=== PATIENT | female | born 1990 | race Caucasian/White ===

== ENCOUNTER 2016-10-02 19:40 | Emergency (ER) | payer MEDICAID ==
[~2016-10-02 19:40] MED LIST: DOXY100T PO; METR-1 PO
--- NOTE | 2016-10-02 20:39 | PD ---
HPI Chief Complaint Presents with N/V and fevers. Date Seen: Oct 02, 2016 Travel History International Travel<30 Days: No Contact w/Intl Traveler<30Days: No Known Affected Area: No History of Present Illness HPI G1 at 18w 6d presents with c/o N/V and fevers at home-99.5. Reports taking Tamiflu currently prescribed by OB provider.Reports body aches since yesterday. Good FM. No other complaints. Para: 0 : 1 Last Menstrual Period: Oct 02, 2016 History Past Medical History Medical History: Denies Significant Hx Past Surgical History Surgical History: No Previous Surgery Family History Family History: Negative Social History Alcohol Use: No Tobacco Use: No Substance Abuse: No (History of use, last use 2011. None this .) Allergies-Medications (Allergen,Severity, Reaction): Uncoded Allergies: NO NARCOTICS (Adverse Reaction, Unknown, 07/19/13) STATES' RECOVERY" Home Meds Active Scripts Metronidazole (Flagyl)500 Mg [id number] Mg PO BID 14 Days Prov:Zaina Badillo MD 05/02/16 Doxycycline Hyclate 100 mg 100 Mg Cap1 Tab PO BID 14 Days Prov:Zaina Badillo MD 05/02/16 Review of Systems Gastrointestinal: Nausea, Vomiting (Episodes x 2 today) Physical Exam Narrative GENERAL: Well-nourished, well-developed patient. SKIN: Warm and dry. HEAD: Normocephalic and atraumatic. EYES: No scleral icterus. No injection or drainage. ENT: No nasal drainage noted. Mucous membranes pink. Airway patent. NECK: Supple, trachea midline. No JVD. CARDIOVASCULAR: Regular rate and rhythm without murmurs, gallops, or rubs. RESPIRATORY: Breath sounds equal bilaterally. No accessory muscle use. BREASTS: Bilateral exam showed no masses , no retractions, no nipple discharge. ABDOMEN/GI: Abdomen soft, non-tender, bowel sounds present, no rebound, no guarding Gravid to [-] weeks size Fundal Height: [-] GENITOURINARY: Deferred FHT's: 150s EXTREMITIES: No cyanosis or edema. BACK: Nontender without obvious deformity. No CVA tenderness. NEUROLOGICAL: Awake and alert. Motor and sensory grossly within normal limits. Five out of 5 muscle strength in all muscle groups. Normal speech. Data Data Vital Signs Reviewed: Yes MDM Interpretation(s) G1 at 18w 6d with flu like symptoms Plan Continue Tamiflu. Rx for Zofran prn. Hydration encouraged. Diagnosis Diagnosis: Primary Impression: 18 weeks gestation of Additional Impressions: Nausea and vomiting during prior to 22 weeks gestation Flu-like symptoms Disposition: 01 DISCHARGE HOME Condition: Stable Scripts Ondansetron Odt (Zofran Odt)4 Mg Tab4 Mg SL Q6HR PRN (Nausea/Vomiting) #20 TAB Ref 0 Prov:Blanca Sheehan MD 10/02/16 Patient Instructions: General Instructions, Nausea and Vomiting in ( ED), Labor (ED) Additional Instructions: RETURN FOR CONTRACTIONS, LOSS OF FLUID (WATER BREAKING), VAGINAL BLEEDING, OR DECREASED MOVEMENT. DRINK 8-10 LARGE GLASSES OF WATER EVERY DAY. BLAND FOOD FOR THE NEXT FEW DAYS. BRAT DIET (BANANAS, RICE, APPLESAUCE, AND TOAST). KEEP SCHEDULED APPOINTMENT WITH YOUR PROVIDER. Departure Forms: Tests/Procedures Blanca Sheehan MD Oct 02, 2016 20:39 BLAND FOOD FOR THE NEXT FEW DAYS. BRAT DIET (BANANAS, RICE, APPLESAUCE, AND TOAST). KEEP SCHEDULED APPOINTMENT WITH YOUR PROVIDER. Departure Forms: Tests/Procedures Blanca Sheehan MD Oct 02, 2016 20:39
[2016-10-02] MEDS ORDERED: ZOFR4TAB3 SL (20:43)
== END 2016-10-02 20:52 | disposition home or self-care (01) ==
LOC: HOBED 19:40
DX: O21.0 Mild hyperemesis gravidarum (principal); Z3A.18 18 weeks gestation of pregnancy
CPT/HCPCS: 99283

== ENCOUNTER 2016-12-27 17:14 | Inpatient (IN) | payer MEDICAID ==
[2016-12-27] VITALS (18 sets, daily range): BP systolic 116–135; BP diastolic 67–84; PULSE 104–118; RESP 18; TEMP 99.2
[~2016-12-27] VITALS: Ht 165.1 cm; Wt 68.0 kg
[~2016-12-27 17:14] MED LIST changes: +ZOFR4TAB3 SL
[2016-12-27] MEDS: LACTATED RINGER'S 1000 ML INJ 1,000 ML IV SCH ×2 (17:54→20:00)
[2016-12-27] MEDS ORDERED: LACTATED RINGER'S 1000 ML INJ 500 ML IV ONE ×2 (17:54→19:25)
--- NOTE | 2016-12-27 17:54 | PD ---
HPI Chief Complaint lower back/abdominal pain Date Seen: December 27, 2016 (Rodney Mckoy MD R2) Travel History International Travel<30 Days: No Contact w/Intl Traveler<30Days: No (Rodney Mckoy MD R2) History of Present Illness HPI Ms. Bermudez is a 26 yo G[address] Vides at 31 1/7 weeks (SAIDA 2016) who presents with lower back pain radiating to her abdomen and concern of rupture of membranes. Patient reports chronic lower back pain, but states that her current pain is worse and different than her usual pain. Patient states that since yesterday, it is been more painful and is radiating to her stomach. Patient describes pain as crampy in nature. Patient reports nausea as well. Patient also reports increased vaginal discharge which is thick in nature and also reports "drip"ping of clear vaginal fluid; patient is not sure whether her membranes ruptured. Patient denies vaginal bleeding, however states that she is recently had pink staining after sexual intercourse approximately 2 nights ago. Patient reports normal movement. Patient does not report fever/ chills, dysuria, or abnormal bowel movements. Report chest pain, shortness of breath, headaches, or leg swelling. Patient states that she has had a benign course with reassuring ultrasound. Patient reports normal labs with exception of elevated one -hour glucose testing; she states that 3 hour testing was normal. Patient reports history of hepatitis C but that it is suppressed at this time. Patient denies any medications or drug use during ; her last IVDU was 2 years prior. : 1 (Rodney Mckoy MD R2) History Past Medical History Narrative Medical Hepatitis C Prior IV DU (Rodney Mckoy MD R2) Obstetric History Obstetric History G1 (Rodney Mckoy MD R2) Past Surgical History Surgical History: No Previous Surgery (Rodney Mckoy MD R2) Family History Narrative Family History Family history of drug abuse per patient (Rodney Mckoy MD R2) Social History Narrative Social History Prior IV drug use including heroin, meth 2 years ago Patient stopped smoking when she knew she was Alcohol Use: No Tobacco Use: No Substance Abuse: No (Rodney Mckoy MD R2) Allergies-Medications (Allergen,Severity, Reaction): Uncoded Allergies: NO KNOWN ALLERGIES (Allergy, Unknown, 12/27/16) Home Meds Active Scripts Ondansetron Odt (Zofran Odt)4 Mg Tab4 Mg SL Q6HR PRN (Nausea/Vomiting) #20 TAB Ref 0 Prov:Blanca Sheehan MD 10/02/16 Metronidazole (Flagyl)500 Mg [id number] Mg PO BID 14 Days Prov:Zaina Badillo MD 05/02/16 Doxycycline Hyclate 100 mg 100 Mg Cap1 Tab PO BID 14 Days Prov:Zaina Badillo MD 05/02/16 Review of Systems General / Constitutional: No: Fever, Chills Eyes: No: Diploplia, Visual changes Cardiovascular: No: Chest Pain or Discomfort Respiratory: No: Short of Breath Gastrointestinal: Nausea, No: Vomiting Genitourinary: No: Urgency, Dysuria (Rodney Mckoy MD R2) Physical Exam T 99 RR 16 HR 100 BP 123/82 Narrative GENERAL: Well-nourished, well-developed patient. SKIN: Warm and dry. HEAD: Normocephalic and atraumatic. EYES: No scleral icterus. No injection or drainage. ENT: No nasal drainage noted. Mucous membranes pink. Airway patent. NECK: Supple, trachea midline. No JVD. CARDIOVASCULAR: Regular rate and rhythm without murmurs RESPIRATORY: CTAB, normal rate ABDOMEN/GI: Abdomen soft, non-tender, bowel sounds present, no rebound, no guarding Gravid EXTREMITIES: No cyanosis or edema. BACK: No CVA tenderness. NEUROLOGICAL: Awake and alert. Motor and sensory function grossly within normal limits. GENITOURINARY: External Genitalia: intact and normal in appearance Cervix: [-] Dilatation: [-] Effacement: [-] Station: [-] Presentation: [-] Membranes: [intact or ruptured] Uterine Contractions: [-] FHT's: Category: 1 Baseline: 130 Reactive: Y Variability: Mod Decels: None (Rodney Mckoy MD R2) Data Data Vital Signs Reviewed: Yes (Rodney Mckoy MD R2) MDM Medical Record Reviewed: Yes Narrative Course / MDM 26 yo G1 patient of [address]. Vides at 31 1/7 weeks (SAIDA 02/27/2017) -Symptoms of lower back pain radiating to her abdomen and concern for rupture of membranes -Cat 1 rhythm -Irregular contractions/irritability on CTG Plan: -Continue EFM -Will check Amnisure for concern for ROM -Will check FFN for contractions/pain -Will check UA for abdominal/back pain (suspicion low since no f/c or dysuria) Interval: Amnisure negative Cervix- 2 cm, effaced, bulging bag CTG- continued irritability Updated Plan: We'll admit patient for observation for labor We'll obtain GBS culture We'll check CBC, BMP We'll start IVF -We'll start MgSO4 (4gmg->2mg) We'll give betamethasone 12 mg 2 doses We'll start GBS prophylaxis with PCN We will obtain ultrasound to confirm lie and weight We'll consult well point pumping supervisor We'll check UDS due to patient's remote history of substance abuse Case discussed between Dr. Francois and Dr. Dr. Vides (Rodney Mckoy MD R2) Collaborating MD Comments Patient with labor. Agree with management plan which has been explained to patient and her family. Chad consult placed, sonogram noted 1770gm, 3#14oz, cephalic. Magnesium sulfate for tocolysis and neuroprotection started, betamethsone given, and PCN prophylaxis. Patient will be admitted. (Karen Francois MD) Rodney Mckoy MD R2 December 27, 2016 17:54 Karen Francois MD December 27, 2016 23:06
[2016-12-27] MEDS ORDERED: SODIUM CHLORIDE 0.9% FLUSH 10 ML FLUSH IV FLUSH PRN ×2 (18:00→19:30)
[2016-12-27 18:58] LABS: BACTERIA, URINE RARE /hpf; BLOOD, URINE NEG (NEG); COMMENT (UR) CULT NOT INDICATED; CULTURE IF INDICATED CULT NOT INDICATED; GLUCOSE,URINE NEG (NEG); KETONE, URINE TRACE mg/dL (NEG); NITRITE,URINE NEG (NEG); SQUAMOUS EPITHELIAL CELL URINE 6 /hpf (0-5); URINE COLOR YELLOW (YELLW/STRAW)
[2016-12-27] MEDS ORDERED: CALCIUM GLUCONATE 10% 1 GM/10 ML VIAL IV PRN (19:30)
[2016-12-27] MEDS ORDERED: MAGNESIUM SULFATE 4 GM PREMIX 100 ML IV ONE (19:30)
[2016-12-27] MEDS ORDERED: ONDANSETRON HCL 4 MG/2 ML VIAL IV PRN (19:30)
[2016-12-27] MEDS ORDERED: ACETAMINOPHEN 325 MG TAB PO PRN (19:30)
--- NOTE | 2016-12-27 19:37 | HHI.HP ---
History & Physical H&P OB ED Note (Detail) Patient Name: Cr Bermudez Unit Number: [id number] Date of : 1990 Patient Status: Registered Emergency Room Attending Doctor: Karen Francois MD HPI HPI Chief Complaint lower back/abdominal pain Date Seen: December 27, 2016 Travel History International Travel<30 Days: No Contact w/Intl Traveler<30Days: No History of Present Illness HPI Ms. Bermudez is a 26 yo G[address] Vides at 31 1/7 weeks (SAIDA 2016) who presents with lower back pain radiating to her abdomen and concern of rupture of membranes. Patient reports chronic lower back pain, but states that her current pain is worse and different than her usual pain. Patient states that since yesterday, it is been more painful and is radiating to her stomach. Patient describes pain as crampy in nature. Patient reports nausea as well. Patient also reports increased vaginal discharge which is thick in nature and also reports "drip"ping of clear vaginal fluid; patient is not sure whether her membranes ruptured. Patient denies vaginal bleeding, however states that she is recently had pink staining after sexual intercourse approximately 2 nights ago. Patient reports normal movement. Patient does not report fever/ chills, dysuria, or abnormal bowel movements. Report chest pain, shortness of breath, headaches, or leg swelling. Patient states that she has had a benign course with reassuring ultrasound. Patient reports normal labs with exception of elevated one -hour glucose testing; she states that 3 hour testing was normal. Patient reports history of hepatitis C but that it is suppressed at this time. Patient denies any medications or drug use during ; her last IVDU was 2 years prior. : 1 History (Limited) History Past Medical History Narrative Medical Hepatitis C Prior IV DU Obstetric History Obstetric History G1 Past Surgical History Surgical History: No Previous Surgery Family History Narrative Family History Family history of drug abuse per patient Social History Narrative Social History Prior IV drug use including heroin, meth 2 years ago Patient stopped smoking when she knew she was Alcohol Use: No Tobacco Use: No Substance Abuse: No Allergies-Medications Allergies-Medications (Allergen,Severity, Reaction): Uncoded Allergies: NO NARCOTICS (Adverse Reaction, Unknown, 07/19/13) STATES' RECOVERY" Home Meds Active Scripts Ondansetron Odt (Zofran Odt)4 Mg Tab4 Mg SL Q6HR PRN (Nausea/Vomiting) #20 TAB Ref 0 Prov:Blanca Sheehan MD 10/02/16 Metronidazole (Flagyl)500 Mg [id number] Mg PO BID 14 Days Prov:Zaina Badillo MD 05/02/16 Doxycycline Hyclate 100 mg 100 Mg Cap1 Tab PO BID 14 Days Prov:Zaina Badillo MD 05/02/16 ROS Review of Systems General / Constitutional: No: Fever, Chills Eyes: No: Diploplia, Visual changes Cardiovascular: No: Chest Pain or Discomfort Respiratory: No: Short of Breath Gastrointestinal: Nausea, No: Vomiting Genitourinary: No: Urgency, Dysuria Physical Exam Physical Exam T 99 RR 16 HR 100 BP 123/82 Narrative GENERAL: Well-nourished, well-developed patient. SKIN: Warm and dry. HEAD: Normocephalic and atraumatic. EYES: No scleral icterus. No injection or drainage. ENT: No nasal drainage noted. Mucous membranes pink. Airway patent. NECK: Supple, trachea midline. No JVD. CARDIOVASCULAR: Regular rate and rhythm without murmurs RESPIRATORY: CTAB, normal rate ABDOMEN/GI: Abdomen soft, non-tender, bowel sounds present, no rebound, no guarding Gravid EXTREMITIES: No cyanosis or edema. BACK: No CVA tenderness. NEUROLOGICAL: Awake and alert. Motor and sensory function grossly within normal limits. GENITOURINARY: External Genitalia: intact and normal in appearance Cervix: [-] Dilatation: [-] Effacement: [-] Station: [-] Presentation: [-] Membranes: [intact or ruptured] Uterine Contractions: [-] FHT's: Category: 1 Baseline: 130 Reactive: Y Variability: Mod Decels: None Data Data Data Vital Signs Reviewed: Yes MDM MDM Medical Record Reviewed: Yes Narrative Course / MDM 26 yo G1 patient of [address]. Vides at 31 1/7 weeks (SAIDA 02/27/2017) -Symptoms of lower back pain radiating to her abdomen and concern for rupture of membranes -Cat 1 rhythm -Irregular contractions/irritability on CTG Plan: -Continue EFM -Will check Amnisure for concern for ROM -Will check FFN for contractions/pain -Will check UA for abdominal/back pain (suspicion low since no f/c or dysuria) Interval: Amnisure negative Cervix- 2 cm, effaced, bulging bag CTG- continued irritability Updated Plan: We'll admit patient for observation for labor We'll obtain GBS culture We'll check CBC, BMP We'll start IVF -We'll start MgSO4 (4gmg->2mg) We'll give betamethasone 12 mg 2 doses We'll start GBS prophylaxis with PCN We will obtain ultrasound to confirm lie and weight We'll consult mapping specialist We'll check UDS due to patient's remote history of substance abuse Case discussed between Dr. Francois and Dr. Dr. Peewee Mckoy,Rodney Grimm MD R2 December 27, 2016 19:37
[2016-12-27] MEDS ORDERED: PENICILLIN G POTASSIUM INJ 5,000,000 UNITS in SODIUM CHLORIDE 0.9% INJ 100 ML IV SCH (20:00)
[2016-12-27] MEDS: BETAMETHASONE SOD PHOS/ACETATE SUSP 30 MG/5 ML VIAL IM SCH (20:00)
[2016-12-27] MEDS ORDERED: LIDOCAINE 2% JELLY 30 ML TUBE ONE (20:42)
[2016-12-27 20:50] LABS: AUTOMATED NEUTROPHIL # 15.2 TH/MM3 (1.8-7.7); BASOPHIL # 0.1 TH/MM3 (0-0.2); BASOPHIL % 0.3 % (0.0-2.0); EOSINOPHIL % 0.2 % (0.0-4.0); HEMATOCRIT 33.7 % (35.0-46.0); HEMO FLAGS DIFF FINAL; LYMPHOCYTE # 1.6 TH/MM3 (1.0-4.8); MEAN CELL VOLUME 88.9 FL (80.0-100.0); MEAN CORPUSCULAR HEMOGLOBIN 30.8 PG (27.0-34.0); MEAN CORPUSCULAR HGB CONC 34.7 % (32.0-36.0); NEUT % 83.5 % (16.0-70.0); PLATELET COUNT 116 TH/MM3 (150-450); RED BLOOD COUNT 3.79 MIL/MM3 (4.00-5.30); RED CELL DISTRIBUTION WIDTH 12.8 % (11.6-17.2); WHITE BLOOD COUNT 18.1 TH/MM3 (4.0-11.0)
[2016-12-27] MEDS: SODIUM CHLORIDE 0.9% FLUSH 10 ML FLUSH IV FLUSH SCH (21:00)
[2016-12-27] MEDS ORDERED: SODIUM CHLORIDE 0.9% FLUSH 10 ML FLUSH IV FLUSH SCH (21:00)
[2016-12-27 21:05] LABS: BICARBONATE 25.2 MEQ/L (21.0-32.0); POTASSIUM 3.6 MEQ/L (3.5-5.1)
[2016-12-27] MEDS: MAGNESIUM SULFATE 40 GM PREMIX 1,000 ML IV SCH (21:20)
[2016-12-27 21:22] LABS: AMPHETAMINE, URINE NEG (NEG); BARBITURATES, URINE NEG (NEG); COCAINE, URINE NEG (NEG)
[2016-12-27] MEDS ORDERED: LACTATED RINGER'S 1000 ML INJ 1,000 ML IV ONE (23:15)
--- NOTE | 2016-12-27 23:26 | PD.CONS ---
Consult Maternal Hx: 26y/o female at 31 1/7weeks gestation with diagnosis of Premature Onset of Labor Mother admitted to [facility] & D on 12/27/16 secondary to contractions EDC of 02/27/17 Maternal risk factors/complications: History of IV drug use 2 years ago. Tobacco use prior to Maternal Labs: Pending. Mother relates history of Hepatitis C Maternal Medications: PNV, Iron, Antibiotics, Magnesium Sulfate Betamethasone first dose 12/27/16 Social: Supportive family Resides locally Family Hx: Mother reports no genetic or inherited conditions. Substance Abuse: IV drug use including Heroin last used 2 years ago. Discussion: Nurse Practitioner met with mother regarding threatened delivery at 31 1 /7 weeks gestation secondary to Premature Onset of Labor This consultation included generalized care of the baby in the NICU, common problems, complications and survival and/or disability potential if delivered at this time. The Nurse Practitioner provided information regarding the [employer] [facility] [employer] national statistics on overall survival at 31weeks at 99% and intact survival without significant neurodevelopmental disability or visual disability at 98%. There was a discussion of the disease processes that may affect an of this gestation, including but not limited to respiratory distress, infection and nutritional concerns. Discussion detailed various forms of respiratory support for immature lungs including use of surfactant and placement of umbilical catheters and/or PICC lines. Discussion focused on CPAP and/or ventilator support as needed for an infant of this gestation. There was a review of nutritional support challenges including IV and gavage feeding. There was discussion regarding of possible feeding intolerances and intestinal complications, including necrotizing enterocolitis a potential cause of serious illness and . Breast feeding and early breast milk pumping was strongly encouraged. Explained that infant is at risk for hyperbilirubinemia and may require treatment with phototherapy. There is a possibility that that baby could need a blood transfusion, which would be addressed in greater detail should the need arise. As the baby matures , it was explained that eye exams would be obtained to evaluate the immature eye for retinopathy of prematurity (ROP). There was a review of the potential for intraventricular hemorrhage (IVH), sonogram testing and subsequent risk of neurodevelopmental delay. It was explained that there is an increased potential for neurodevelopmental delay secondary to prematurity itself, even if the does not have IVH or ROP. Support systems in place at [facility] were reviewed and included , Case Management and Ministry which the family may utilize. Expected discharge would likely occur closer to the due date if the infant has an uncomplicated hospitalization. Greater than 50% of the consultation time was spent with the patient. KALA DUQUE December 27, 2016 23:26 KALA DUQUE December 27, 2016 23:26
[2016-12-27] MEDS: PENICILLIN G POTASSIUM INJ 2,500,000 UNITS in SODIUM CHLORIDE 0.9% INJ 100 ML IV SCH (23:49)
[2016-12-28] VITALS (117 sets, daily range): BP systolic 88–129; BP diastolic 37–83; PULSE 93–136; RESP 16–20; TEMP 97.8–98.6; O2SAT 96–100
[2016-12-28] MEDS: PENICILLIN G POTASSIUM INJ 2,500,000 UNITS in SODIUM CHLORIDE 0.9% INJ 100 ML IV SCH ×4 (03:43→16:36)
--- NOTE | 2016-12-28 08:41 | PD.LABORPN ---
Subjective Subjective 26 yo wf G1 at 30 1/2 weeks came to [facility] with back pain that was constant. No obvious risk factors for PTL In recovery almost two years. Compliant with care. Had quit job 3 weeks ago. No smoking, drinking, excessive caffein. Did move residence a few weeks ago. On initial evaluation was 2 cm and now 4-5/100/-2 Objective Vital Signs Vital Signs Date Time Temp Pulse Resp B/P Pulse Ox O2 Delivery O2 Flow Rate FiO2 12/28/16 08:15 98.3 12/28/16 08:00 16 12/28/16 08:00 104 114/73 12/28/16 07:00 110 115/81 12/28/16 06:00 101 110/75 12/28/16 05:00 96 102/62 12/28/16 04:00 98 111/61 12/28/16 03:00 102 105/58 12/28/16 02:00 100 116/80 Objective strip category 1 4-5/100/-2 On mag and steroids efw 3 pounds Assessment/Plan Problem List: (1) Flu-like symptoms (2) 18 weeks gestation of (3) Nausea and vomiting during prior to 22 weeks gestation Assessment and Plan move to labor side epidural prn anticipate delivery in next 24 hours EFW 3 14 notify NICU Kati Vides MD December 28, 2016 08:41
[2016-12-28] MEDS: LACTATED RINGER'S 1000 ML INJ 1,000 ML IV SCH ×2 (08:43→10:13)
[2016-12-28 11:11] LABS: AMPHETAMINE, URINE NEG (NEG)
[2016-12-28 11:17] LABS: BARBITURATES, URINE NEG (NEG); COCAINE, URINE NEG (NEG)
--- NOTE | 2016-12-28 12:29 | PD.LABORPN ---
Subjective Subjective having mild UCs despite magnesium tolerable Objective Vital Signs Vital Signs Date Time Temp Pulse Resp B/P Pulse Ox O2 Delivery O2 Flow Rate FiO2 12/28/16 12:12 112 129/83 12/28/16 12:00 16 12/28/16 11:30 97.8 12/28/16 11:00 99 117/74 12/28/16 10:00 107 106/61 12/28/16 09:00 109 109/67 12/28/16 08:15 98.3 12/28/16 08:00 16 12/28/16 08:00 104 114/73 12/28/16 07:00 110 115/81 12/28/16 06:00 101 110/75 12/28/16 05:00 96 102/62 Objective -/100%/-1 bag seems intact strip category 1 ewf 3 pounds 14 ounces anticipate delivery today Assessment/Plan Problem List: (1) Flu-like symptoms (2) 18 weeks gestation of (3) Nausea and vomiting during prior to 22 weeks gestation Kati Vides MD December 28, 2016 12:29
[2016-12-28] MEDS: MAGNESIUM SULFATE 40 GM PREMIX 1,000 ML IV SCH (16:04)
[2016-12-28] MEDS ORDERED: fentaNYL 2MCG-BUPIV 0.125% INJ 100 ML ONE (16:29)
[2016-12-28] MEDS ORDERED: ePHEDrine/NS 25 MG/5 ML SYR ONE (16:30)
--- NOTE | 2016-12-28 16:32 | PD.LABORPN ---
Subjective Subjective very emotional feeling like she has to poop Objective Vital Signs Vital Signs Date Time Temp Pulse Resp B/P Pulse Ox O2 Delivery O2 Flow Rate FiO2 12/28/16 16:01 18 12/28/16 16:00 103 110/75 12/28/16 16:00 98.6 12/28/16 14:59 102 115/73 12/28/16 14:03 18 12/28/16 14:00 103 105/59 12/28/16 13:14 20 12/28/16 13:00 104 114/72 12/28/16 12:45 18 12/28/16 12:12 112 129/83 12/28/16 12:00 16 12/28/16 11:30 97.8 12/28/16 11:00 99 117/74 12/28/16 10:00 107 106/61 12/28/16 09:00 109 109/67 Objective 100/8-9/0 strip category one' no longer feel membranes amnisure was negative on admission Assessment/Plan Problem List: (1) labor in third trimester Assessment and Plan anticipate delivery soon epidural now. Kati Vides MD December 28, 2016 16:32
[2016-12-28] MEDS ORDERED: ePHEDrine/NS 25 MG/5 ML SYR IV PRN (18:00)
[2016-12-28] MEDS ORDERED: DO NOT ADMINISTER ANTICOAGULANTS PRN (18:00)
[2016-12-28] MEDS ORDERED: NO SYSTEM NARCOTICS PRN (18:00)
[2016-12-28] MEDS: SODIUM CHLORIDE 0.9% FLUSH 10 ML FLUSH IV FLUSH SCH (19:36)
[2016-12-28] MEDS: fentaNYL 2MCG-BUPIV 0.125% 100 ML EPIDURAL SCH ×2 (19:37→23:30)
[2016-12-28] MEDS: ceFAZolin 1,000 MG/NS 100 ML IV SCH ×2 (20:07)
[2016-12-28] MEDS: BETAMETHASONE SOD PHOS/ACETATE SUSP 30 MG/5 ML VIAL IM SCH (20:07)
[2016-12-29] VITALS (81 sets, daily range): BP systolic 87–128; BP diastolic 44–80; PULSE 74–115; RESP 18–20; TEMP 97.9–98; O2SAT 94–100
[2016-12-29] MEDS: ceFAZolin 1,000 MG/NS 100 ML IV SCH ×4 (04:04→12:03)
[2016-12-29] MEDS: LACTATED RINGER'S 1000 ML INJ 1,000 ML IV SCH ×2 (04:38→12:04)
[2016-12-29] MEDS: fentaNYL 2MCG-BUPIV 0.125% 100 ML EPIDURAL SCH ×2 (06:07→12:04)
[2016-12-29] MEDS ORDERED: OXYTOCIN 30 UNITS-500ML PREMIX 500 ML IV SCH (13:00)
--- NOTE | 2016-12-29 13:23 | PD.OB.DELI ---
Anesthesia: Epidural Episiotomy: Midline Vaginal Delivery: Normal Presentation: Occiput anterior Nuchal Cord: None Delayed cord clamping (45 sec): Yes Infant: Female One Minute : 6 Five Minute : 7 Placenta: Spontaneous delivery Laceration: Episiotomy, 2 deg Repair: Chromic running (placenta cultured) Kati Vides MD December 29, 2016 13:22
[2016-12-29] MEDS ORDERED: ACETAMINOPHEN 325 MG TAB PO PRN (13:30)
[2016-12-29] MEDS ORDERED: DOCUSATE SODIUM 50 MG/SENNA 8.6 MG TAB PO PRN (13:30)
[2016-12-29] MEDS ORDERED: ZOLPIDEM TARTRATE 5 MG TAB PO PRN (13:30)
[2016-12-29] MEDS ORDERED: ALUMINUM/MAGNESIUM/SIMETH 30 ML CUP PO PRN (13:30)
[2016-12-29] MEDS ORDERED: SODIUM CHLORIDE 0.9% FLUSH 10 ML FLUSH IV FLUSH PRN (13:30)
[2016-12-29] MEDS ORDERED: ONDANSETRON ODT 4 MG TAB PO PRN (13:30)
[2016-12-29] MEDS ORDERED: MEASLES, MUMPS, RUBELLA VACCINE 0.5 ML VIAL SQ ONE (16:00)
[2016-12-29] MEDS ORDERED: DIPHTH/TETANUS/ACEL PERTUSSIS (BOOSTER) 0.5 ML VIAL/PFS IM ONE (16:00)
[2016-12-29] MEDS: BENZOCAINE 20% TOPICAL SPRAY 60 ML CAN TOPICAL PRN (21:00)
[2016-12-29] MEDS ORDERED: SODIUM CHLORIDE 0.9% FLUSH 10 ML FLUSH IV FLUSH SCH (21:00)
[2016-12-29] MEDS: WITCH HAZEL 50%/GLYCERIN 12.5% 40 PAD JAR TOPICAL PRN (21:00)
[2016-12-29] MEDS: IBUPROFEN 600 MG TAB PO PRN (21:01)
[2016-12-30] MEDS: LACTATED RINGER'S 1000 ML INJ 1,000 ML IV SCH ×2 (04:00→10:45)
[2016-12-30] MEDS: IBUPROFEN 600 MG TAB PO PRN ×3 (05:16→19:41)
[2016-12-30] MEDS: SODIUM CHLORIDE 0.9% FLUSH 10 ML FLUSH IV FLUSH SCH (08:04)
--- NOTE | 2016-12-30 08:39 | HHI.OB ---
Subjective Post Day: 1 Remarks PPD#1, del. at 31 weeks,stable, in NICU Objective Vitals/I&O Vital Signs Date Time Temp Pulse Resp B/P Pulse Ox O2 Delivery O2 Flow Rate FiO2 12/29/16 20:45 98.0 74 20 117/75 12/29/16 14:25 18 12/29/16 14:15 94 124/67 12/29/16 14:01 95 108/66 12/29/16 13:46 100 119/77 12/29/16 13:24 115 104/52 12/29/16 13:23 18 12/29/16 12:32 18 12/29/16 12:30 97 108/72 12/29/16 12:10 18 12/29/16 12:04 18 12/29/16 12:00 99 89/44 12/29/16 11:30 99 117/75 12/29/16 10:03 97.9 18 12/29/16 10:00 104 117/72 12/29/16 09:43 18 12/29/16 09:30 103 120/72 12/29/16 09:00 103 128/76 Objective Remarks GENERAL: Well-nourished, well-developed patient. CARDIOVASCULAR: Regular rate and rhythm without murmurs, gallops, or rubs. RESPIRATORY: Breath sounds equal bilaterally. No accessory muscle use. ABDOMEN/GI: Abdomen soft, non-tender. Fundus: Firm, non-tender at umbilicus. GENITOURINARY: Light to moderate bleeding. EXTREMITIES: No cyanosis or edema, non-tender, without signs of DVT. Medications and IVs Current Medications Medications (Trade) Dose Ordered Sig/Heri Route Start Time Stop Time Status Last Admin (Lr 1000 ml Inj) 1,000 ml @ 125 mls/hr Q8H IV 12/27/16 20:00 12/29/16 12:04 (NS Flush) 2 ml UNSCH PRN IV FLUSH 12/27/16 19:30 Sodium Chloride 2 ml 2 ml BID IV FLUSH 12/27/16 21:00 (Magnesium Sulfate 40 Gm Premix) 1,000 ml @ 25 mls/hr Q24H IV 12/27/16 20:00 12/28/16 16:04 (Tylenol) 650 mg Q4H PRN PO 12/27/16 19:30 Ondansetron HCl 4 mg 4 mg Q6H PRN IV 12/27/16 19:30 Fentanyl/ Bupivacaine HCl 100 ml @ 0 mls/hr TITRATE EPIDURAL 12/28/16 18:00 12/29/16 12:04 Cefazolin Sodium 1000 mg/Sodium Chloride 100 ml @ 200 mls/hr Q8H IV 12/28/16 20:00 12/29/16 12:03 (Pitocin 30 Units-NS 500 ml Premix) 500 ml @ 0 mls/hr TITRATE IV 12/29/16 13:00 (Tylenol) 650 mg Q4H PRN PO 12/29/16 13:30 (Motrin) 600 mg Q6H PRN PO 12/29/16 13:30 12/30/16 05:16 (Americaine 20% Top Spr) 1 spray Q4H PRN TOPICAL 12/29/16 13:30 12/29/16 21:00 (Tucks Pads) 1 applic QID PRN TOPICAL 12/29/16 13:30 12/29/16 21:00 (Lottie-Colace) 2 tab Q12H PRN PO 12/29/16 13:30 12/29/16 21:03 (Ambien) 5 mg HS PRN PO 12/29/16 13:30 (Mag-Al Plus Susp Liq) 15 ml Q8H PRN PO 12/29/16 13:30 (Zofran Odt) 4 mg Q6H PRN PO 12/29/16 13:30 Assessment/Plan Problem List: (1) labor in third trimester Assessment and Plan PPD#1, stable, plan discharge tomorrow Discharge Planning Routine Attending Attestation seen by Angel Hamilton MD December 30, 2016 08:39
[2016-12-30] MEDS: ceFAZolin 1,000 MG/NS 100 ML IV SCH ×2 (10:45)
[2016-12-30 11:58] VITALS: BP 122/73; PULSE 90; RESP 18; TEMP 98.5
[2016-12-30 19:35] VITALS: BP 136/90; PULSE 76; RESP 18; TEMP 98.1
[2016-12-31] VITALS: BP 118/79; PULSE 57; RESP 18; TEMP 98.2
[2016-12-31] MEDS: IBUPROFEN 600 MG TAB PO PRN ×2 (05:52→12:01)
[2016-12-31] MEDS ORDERED: IBUP-232 PO (07:26)
--- NOTE | 2016-12-31 07:28 | HHI.DCPOC ---
Discharge Care Plan Diagnosis: (1) labor in third trimester with delivery Your Health Problems Are: Vaginal delivery Report Symptoms to Your Doctor -Temperate above 100.5 degrees -Redness, of incision or excessive or foul smelling drainage -Unusual pain or calf pain -Increased vaginal bleeding -Painful or difficulty urinating -Feelings of extreme sadness or anxiety after 2 weeks Goals to Promote Your Health * To prevent worsening of your condition and complications * To maintain your health at the optimal level Directions to Meet Your Goals Take your medications as prescribed Follow your dietary instruction Follow activity as directed Ensure plenty of rest for recovery Drink fluids for hydration Keep your appointments as scheduled Take your immunizations and boosters as scheduled If your symptoms worsen call your PCP, if no PCP go to Urgent Care Center or Emergency Room Smoking is Dangerous to Your Health. Avoid second hand smoke Call the 24-hour crisis hotline for domestic abuse at Fifi Cunningham MD December 31, 2016 07:28
--- NOTE | 2016-12-31 07:46 | HHI.OB ---
Subjective Post Day: 2 Remarks s/p delivery with labor at 31w6d; female infant in NICU Objective Vitals/I&O Vital Signs Date Time Temp Pulse Resp B/P Pulse Ox O2 Delivery O2 Flow Rate FiO2 12/31/16 00:00 98.2 12/31/16 00:00 57 18 118/79 12/30/16 19:35 98.1 12/30/16 19:35 76 18 136/90 12/30/16 11:58 98.5 90 18 122/73 Objective Remarks GENERAL: Well-nourished, well-developed patient. CARDIOVASCULAR: Regular rate and rhythm without murmurs, gallops, or rubs. RESPIRATORY: Breath sounds equal bilaterally. No accessory muscle use. ABDOMEN/GI: Abdomen soft, non-tender. Fundus: Firm, non-tender at umbilicus. GENITOURINARY: Light bleeding. EXTREMITIES: No cyanosis or edema, non-tender, without signs of DVT. Medications and IVs Current Medications Medications (Trade) Dose Ordered Sig/Heri Route Start Time Stop Time Status Last Admin (Lr 1000 ml Inj) 1,000 ml @ 125 mls/hr Q8H IV 12/27/16 20:00 12/29/16 12:04 (NS Flush) 2 ml UNSCH PRN IV FLUSH 12/27/16 19:30 Sodium Chloride 2 ml 2 ml BID IV FLUSH 12/27/16 21:00 (Magnesium Sulfate 40 Gm Premix) 1,000 ml @ 25 mls/hr Q24H IV 12/27/16 20:00 12/28/16 16:04 (Tylenol) 650 mg Q4H PRN PO 12/27/16 19:30 Ondansetron HCl 4 mg 4 mg Q6H PRN IV 12/27/16 19:30 Fentanyl/ Bupivacaine HCl 100 ml @ 0 mls/hr TITRATE EPIDURAL 12/28/16 18:00 12/29/16 12:04 Cefazolin Sodium 1000 mg/Sodium Chloride 100 ml @ 200 mls/hr Q8H IV 12/28/16 20:00 12/29/16 12:03 (Pitocin 30 Units-NS 500 ml Premix) 500 ml @ 0 mls/hr TITRATE IV 12/29/16 13:00 (Tylenol) 650 mg Q4H PRN PO 12/29/16 13:30 (Motrin) 600 mg Q6H PRN PO 12/29/16 13:30 12/31/16 05:52 (Americaine 20% Top Spr) 1 spray Q4H PRN TOPICAL 12/29/16 13:30 12/29/16 21:00 (Tucks Pads) 1 applic QID PRN TOPICAL 12/29/16 13:30 12/29/16 21:00 (Lottie-Colace) 2 tab Q12H PRN PO 12/29/16 13:30 12/29/16 21:03 (Ambien) 5 mg HS PRN PO 12/29/16 13:30 (Mag-Al Plus Susp Liq) 15 ml Q8H PRN PO 12/29/16 13:30 (Zofran Odt) 4 mg Q6H PRN PO 12/29/16 13:30 Assessment/Plan Problem List: (1) labor in third trimester Assessment and Plan PPD#2 continue routine supportive care meeting all discharge criteria dc to home today Discharge Planning Routine Fifi Cunningham MD December 31, 2016 07:46
[2016-12-31 08:07] VITALS: BP 108/71; PULSE 53; RESP 18; TEMP 98.2
[2016-12-31] MEDS: WITCH HAZEL 50%/GLYCERIN 12.5% 40 PAD JAR TOPICAL PRN (12:14)
[2016-12-31] MEDS: BENZOCAINE 20% TOPICAL SPRAY 60 ML CAN TOPICAL PRN (12:15)
[2017-01-01 14:30] LABS: BATH SALTS (MDPV) UR NEG (NEG); ECSTASY (MDMA) UR NEG (NEG); HEROIN (6-ACETYLMORPHINE) UR NEG (NEG); K2 SPICE UR NEG (NEG); OBMETHADONE UR NEG (NEG); PHENCYCLIDINE URINE NEG (NEG)
[2017-01-01 14:31] LABS: GABAPENTIN UR NEG (NEG); HYDROMORPHONE U NEG (NEG); OXYCODONE (PERCODAN) NEG (NEG)
== END 2016-12-31 12:56 | disposition home or self-care (01) | DRG 775 ==
LOC: HOBED 17:14 → H2EA 19:35 → OBSVTOIN 19:35 → H2EB 12-28 11:53 → H1EA 12-29 17:32
PROVIDERS: ADMIT Obstetrics & Gynecology; ATTEND Obstetrics & Gynecology
PROC: 10E0XZZ Delivery of Products of Conception, External Approach (ICD-10-PCS; principal; 2016-12-27)
PROC: 0W8NXZZ Division of Female Perineum, External Approach (ICD-10-PCS; 2016-12-27)
DX: O60.14X0 Preterm labor third trimester with preterm delivery third trimester, not applicable or unspecified (principal); G89.29 Other chronic pain; M54.5 Low back pain; N89.8 Other specified noninflammatory disorders of vagina; Z37.0 Single live birth; Z87.891 Personal history of nicotine dependence; Z3A.31 31 weeks gestation of pregnancy; Z86.19 Personal history of other infectious and parasitic diseases
CPT/HCPCS: 76816; 80048; 80307; 81001; 82731; 84112; 85025; 86900; 86901; 87070; 87077; 87081; 87150; 87186; 99285; G0481; J0690; J0702; J2540; J3010; J3475; J7120